=== PATIENT | female | born 1955 | race Two or more races ===

== ENCOUNTER 2019-03-23 19:49 | Emergency (ER) | payer OTHER ==
[~2019-03-23] VITALS: Ht 154.9 cm; Wt 53.0 kg
[2019-03-23] MEDS ORDERED: MAGNESIUM/ALUMINUM HYDROXIDE/SIMETHICONE 30ML UDC PO ONE (23:30)
[2019-03-23] MEDS ORDERED: VISCOUS LIDOCAINE 2% 15 ML UDC PO ONE (23:30)
[2019-03-23] MEDS ORDERED: ONDANSETRON HCL 4MG/2ML INJ IV ONE (23:30)
[2019-03-24 00:12] LABS: CLARITY URINE CLEAR (CLEAR); COLOR URINE YELLOW (YELLOW); KETONES URINE NEGATIVE (NEGATIVE); LEUKOCYTE ESTERASE URINE TRACE (NEGATIVE); NITRITE URINE NEGATIVE (NEGATIVE); OCCULT BLOOD URINE NEGATIVE (NEGATIVE); PROTEIN URINE NEGATIVE (NEGATIVE); SPECIFIC GRAVITY URINE 1.005 (1.005-1.030); UROBILINOGEN URINE 0.2 E.U./dL (0.2-1.0)
[2019-03-24 00:22] LABS: BASOPHILS % 0.7 % (0.0-2.0); EOSINOPHILS % 0.8 % (0.0-5.0); HEMATOCRIT. 37.5 % (36.0-48.0); HEMOGLOBIN. 12.8 g/dL (12.0-16.0); LYMPHOCYTES % 21.6 % (20.0-50.0); MEAN CORPUSCULAR HEMOGLOBIN 30.8 pg (28.0-32.0); MEAN CORPUSCULAR VOLUME 90.3 fL (81.0-99.0); MEAN PLATELET VOLUME 9.7 fl (7.4-10.4); MONOCYTES % 7.8 % (2.0-8.0); NEUTROPHILS % 69.1 % (40.0-76.0); PLATELET 232 x1000/uL (130-400); RED BLOOD CELL COUNT 4.15 mill/uL (4.2-5.4); RED CELL DISTRIBUTION WIDTH 13.9 % (11.6-14.6)
[2019-03-24 00:28] LABS: CHLORIDE 102 mEq/L (98-107)
[2019-03-24 02:05] VITALS: BP 138/80
== END 2019-03-24 02:12 | disposition home or self-care (01) ==
LOC: ER 19:49
DX: K29.70 Gastritis, unspecified, without bleeding (principal); K25.9 Gastric ulcer, unspecified as acute or chronic, without hemorrhage or perforation; Z90.49 Acquired absence of other specified parts of digestive tract
CPT/HCPCS: 36415; 71045; 80053; 81003; 83690; 83880; 84484; 85025; 93005; 96374; 99284; J2405; Z7610

== ENCOUNTER 2019-04-24 10:00 | Day surgery (SDC) | payer MEDICAID ==
[~2019-04-24] VITALS: Ht 154.9 cm; Wt 52.2 kg
[~2019-04-24 10:00] MED LIST: LORA1TAB PO; OMEP20CA5 PO; RANI150T7 PO; TRAM50TA3 PO
[2019-04-24] MEDS ORDERED: IOHEXOL-300 100 ML BOTTLE ONE (11:09)
[2019-04-24] MEDS ORDERED: SIMETHICONE 40 MG/0.6 ML 30ML ONE (11:09)
[2019-04-24] MEDS ORDERED: LACTATED RINGERS 1,000 ML IV SCH (11:15)
[2019-04-24] MEDS ORDERED: LIDOCAINE HCL/PF 1% 10 MG/ML 5ML VIAL ONE (12:06)
[2019-04-24] MEDS ORDERED: FENTANYL CITRATE/PF 50MCG/ML 2ML VIAL ONE (12:06)
[2019-04-24] MEDS ORDERED: PROPOFOL 200MG/20ML VIAL IV ONE (12:06)
[2019-04-24] MEDS ORDERED: SUCCINYLCHOLINE CHLORIDE 200MG/10ML IV ONE (12:06)
[2019-04-24] MEDS ORDERED: ROCURONIUM BROMIDE 10MG/ML VIAL 5ML IV ONE (12:06)
[2019-04-24] MEDS ORDERED: CEFAZOLIN SODIUM 1000MG/VIAL ONE (12:06)
[2019-04-24] MEDS ORDERED: NEOSTIGMINE METHYLSULFATE 1MG/ML 10 ML VIAL ONE (12:06)
[2019-04-24] MEDS ORDERED: EPHEDRINE SULFATE 50MG/ML VIAL ONE (12:06)
[2019-04-24] MEDS ORDERED: SODIUM CHLORIDE 0.9% 10ML VIAL ONE (12:06)
[2019-04-24] MEDS ORDERED: MIDAZOLAM HCL 2 MG/2 ML VIAL ONE (12:06)
[2019-04-24] MEDS ORDERED: GLYCOPYRROLATE 0.2 MG/ML 2ML VIAL ONE (12:06)
[2019-04-24] MEDS ORDERED: METOCLOPRAMIDE HCL 10MG/2ML VIAL ONE (12:07)
[2019-04-24] MEDS ORDERED: PHENYLEPHRINE HCL 10 MG/ML 1ML (IV VIAL) IV ONE (12:07)
[2019-04-24] MEDS ORDERED: ONDANSETRON HCL 4MG/2ML INJ ONE (12:07)
[2019-04-24] MEDS ORDERED: SODIUM CHLORIDE 0.9% 1,000 ML IV ONE (12:40)
[2019-04-24] MEDS ORDERED: HYDROMORPHONE HCL/PF 2MG/ML CPJ IV PRN (12:45)
[2019-04-24] MEDS ORDERED: MEPERIDINE HCL/PF 25MG/ML CPJ IV PRN (12:45)
[2019-04-24] MEDS ORDERED: ONDANSETRON HCL 4MG/2ML INJ IV PRN (12:45)
== END 2019-04-24 14:40 | disposition home or self-care (01) ==
LOC: OR 10:00
PROVIDERS: ATTEND Internal Medicine Gastroenterology
DX: K86.89 Other specified diseases of pancreas (principal); F41.9 Anxiety disorder, unspecified; F32.9 Major depressive disorder, single episode, unspecified; M19.90 Unspecified osteoarthritis, unspecified site; F10.10 Alcohol abuse, uncomplicated; K21.9 Gastro-esophageal reflux disease without esophagitis; E66.3 Overweight; Z53.8 Procedure and treatment not carried out for other reasons; Z79.899 Other long term (current) drug therapy; Z90.49 Acquired absence of other specified parts of digestive tract
CPT/HCPCS: 93005; J0330; J0690; J2250; J2370; J2405; J2704; J2765; J3010; J3490; Q9967; J2710